=== PATIENT | female | born 1990 | race African-American/Black ===

== ENCOUNTER → 2016-09-01 | Outpatient (CLI) | payer MEDICAID ==
[~2016-09-01] MED LIST: IBUP800T23 PO
== END ==
LOC: HPND 08:11
PROVIDERS: ATTEND Obstetrics & Gynecology
DX: Z36 Encounter for antenatal screening of mother (principal)
CPT/HCPCS: 76813; 76817

== ENCOUNTER 2016-09-11 18:50 | Emergency (ER) | payer MEDICAID ==
[2016-09-11 18:52] VITALS: BP 155/72; PULSE 84; RESP 24; TEMP 98.7; O2SAT 99
[2016-09-11 20:15] VITALS: PULSE 80
[2016-09-11 20:20] VITALS: PULSE 84
[2016-09-11 20:25] VITALS: PULSE 89
[2016-09-11 20:29] VITALS: BP 148/76; PULSE 98
[2016-09-11 20:30] VITALS: RESP 18
--- NOTE | 2016-09-11 20:48 | PD ---
HPI Chief Complaint vaginal bleeding Date Seen: September 11, 2016 Travel History International Travel<30 Days: No Contact w/Intl Traveler<30Days: No Known Affected Area: No History of Present Illness HPI This is a 26y/o at 15w6d who presents to the [facility] with dark red vaginal bleeding noted at 4pm. She denies leakage of fluid with reports of lower abdominal pain when urinating. Pt with similar bleeding at ~ 8 weeks of gestation. She was also placed on bedrest in end of July/early August due to spotting. Recent UTI and yeast infection in early July. [place] yesterday evening and this morning. care with Dr. Abraham, no records for review, care complicated by: 1. bleeding in early 2. bleeding episode today 3. h/o PIH, mildly elevated bps, f/u for bp check in the office Para: 1 : 3 History Past Medical History Narrative Medical h/o Asthma, no meds Obstetric History Obstetric History 2013 Past Surgical History Surgical History: No Previous Surgery Social History Alcohol Use: No Tobacco Use: No Substance Abuse: No Allergies-Medications (Allergen,Severity, Reaction): Coded Allergies: No Known Allergies (Unverified , 09/11/16) Home Meds Active Scripts Ibuprofen 800 Mg Gap711 Mg PO TID PRN (PAIN) #30 TAB Prov:Charli Hart MD 04/27/14 Review of Systems Except as stated in HPI: all other systems reviewed are Neg Physical Exam Vital Signs Date Time Temp Pulse Resp B/P Pulse Ox O2 Delivery O2 Flow Rate FiO2 09/11/16 18:52 98.7 84 24 155/72 99 Room Air Narrative GENERAL: Well-nourished, well-developed patient. SKIN: Warm and dry. HEAD: Normocephalic and atraumatic. EYES: No scleral icterus. No injection or drainage. ENT: No nasal drainage noted. Mucous membranes pink. Airway patent. NECK: Supple, trachea midline. No JVD. CARDIOVASCULAR: Regular rate and rhythm without murmurs, gallops, or rubs. RESPIRATORY: Breath sounds equal bilaterally. No accessory muscle use. BREASTS: Bilateral exam showed no masses , no retractions, no nipple discharge. ABDOMEN/GI: Abdomen soft, non-tender, bowel sounds present, no rebound, no guarding Gravid to 17 weeks size GENITOURINARY: External Genitalia: intact and normal in appearance Cervix: c/l/p Sterile speculum exam: + blood seen, visually closed, + minimal blood clots FHT's: seen on bedside u/s, active fetus EXTREMITIES: No cyanosis or edema. BACK: Nontender without obvious deformity. No CVA tenderness. NEUROLOGICAL: Awake and alert. Motor and sensory grossly within normal limits. Five out of 5 muscle strength in all muscle groups. Normal speech. Data Data Vital Signs Reviewed: Yes Orders Urinalysis - C+S If Indicated (09/11/16 19:13) Ed Urine Pregnancytest Poc (09/11/16 19:13) Vital Signs (Adult) .ON ADMISSION (09/11/16 20:39) ^ Labor Status (09/11/16 20:39) [facility] Medical Record Reviewed: No Interpretation(s) 26y/o at 15w6d who presents for evaluation of vaginal bleeding in . -active fetus on ultrasound, +FH -minimal bleeding on exam -mildly elevated blood pressures -RH + per EMR Plan -strict pelvic rest -f/u with ob provider this week due to bleeding and elevated blood presssures Diagnosis Diagnosis: Primary Impression: Antepartum bleeding, second trimester Disposition: 01 DISCHARGE HOME Patient Instructions: General Instructions Comfort Aguilar MD September 11, 2016 20:48
[2016-09-11 20:50] LABS: BLOOD, URINE LARGE (NEG); COMMENT (UR) CULT NOT INDICATED; CULTURE IF INDICATED CULT NOT INDICATED; GLUCOSE,URINE NEG (NEG); KETONE, URINE NEG (NEG); NITRITE,URINE NEG (NEG); PH, URINE 5.5 (5.0-8.5); SQUAMOUS EPITHELIAL CELL URINE 7 /hpf (0-5); URINE COLOR YELLOW (YELLW/STRAW)
== END 2016-09-11 21:15 | disposition home or self-care (01) ==
LOC: HOBED 18:50
DX: O46.92 Antepartum hemorrhage, unspecified, second trimester (principal); Z3A.15 15 weeks gestation of pregnancy
CPT/HCPCS: 81001; 99284

== ENCOUNTER → 2016-09-30 | Outpatient (CLI) | payer MEDICAID | LOC: HPND 09:46 | PROVIDERS: ATTEND Obstetrics & Gynecology | DX: O26.842 Uterine size-date discrepancy, second trimester (principal); O35.1XX0 Maternal care for (suspected) chromosomal abnormality in fetus, not applicable or unspecified; Z36 Encounter for antenatal screening of mother; Z3A.18 18 weeks gestation of pregnancy | CPT/HCPCS: 76805; 76817 ==

== ENCOUNTER → 2016-10-27 | Outpatient (CLI) | payer MEDICAID | LOC: HPND 08:04 | PROVIDERS: ATTEND Obstetrics & Gynecology | DX: O35.1XX0 Maternal care for (suspected) chromosomal abnormality in fetus, not applicable or unspecified (principal); O43.192 Other malformation of placenta, second trimester; O36.8920 Maternal care for other specified fetal problems, second trimester, not applicable or unspecified; Z3A.00 Weeks of gestation of pregnancy not specified | CPT/HCPCS: 76816 ==

== ENCOUNTER 2016-12-29 11:36 | Emergency (ER) | payer MEDICAID ==
--- NOTE | 2016-12-29 12:30 | PD ---
HPI Chief Complaint Patient fell in the bathtub Date Seen: Dec 29, 2016 Time Seen: 12:15 Travel History International Travel<30 Days: No Contact w/Intl Traveler<30Days: No Known Affected Area: No History of Present Illness HPI Patient is a 26-year-old black female at [address] Abraham for care. She was in the bathtub today with her small child and fell because the kid got in her way and she slipped and fell backwards and hit on her bottom and back, no injury to the abdomen. Her back is sore and painful now , no bleeding noted no leakage of fluid. Baby is active since the fall. Weeks Gestation: 31 Para: 1 : 4 Miscarriage: 2 History Obstetric History Obstetric History One vaginal delivery Social History Alcohol Use: No Tobacco Use: No Substance Abuse: No Allergies-Medications (Allergen,Severity, Reaction): Coded Allergies: No Known Allergies (Unverified , 09/11/16) Home Meds Active Scripts Ibuprofen (Ibuprofen) 800 Mg Tab, 800 MG PO TID Y for PAIN, #30 TAB Prov:Charli Hart MD 04/27/14 Review of Systems Gastrointestinal: Abdominal Pain Physical Exam Narrative GENERAL: Well-nourished, well-developed patient. SKIN: Warm and dry. HEAD: Normocephalic and atraumatic. EYES: No scleral icterus. No injection or drainage. ENT: No nasal drainage noted. Mucous membranes pink. Airway patent. NECK: Supple, trachea midline. No JVD. CARDIOVASCULAR: Regular rate and rhythm without murmurs, gallops, or rubs. RESPIRATORY: Breath sounds equal bilaterally. No accessory muscle use. BREASTS: Bilateral exam showed no masses , no retractions, no nipple discharge. ABDOMEN/GI: Abdomen soft, non-tender, bowel sounds present, no rebound, no guarding Gravid to [31-] weeks size Fundal Height: [31-] GENITOURINARY: Membranes: [intact ] Uterine Contractions: [-none] FHT's: Category: [1-] Baseline: [133-] Reactive: [-yes] Variability: [mod-] Decels: [none-] EXTREMITIES: No cyanosis or edema. BACK: Nontender without obvious deformity. No CVA tenderness. NEUROLOGICAL: Awake and alert. Motor and sensory grossly within normal limits. Five out of 5 muscle strength in all muscle groups. Normal speech. MDM Interpretation(s) Patient 26-year-old black female at 31 weeks who fell in the tub today and fell against her back in the bottom no abdominal trauma. Heart rate is reactive and no contractions baby is moving well. She has no bleeding or leakage of fluid. Plan Plan to observe the patient for 2 hours after trauma and discharge home and follows well. Diagnosis Diagnosis: Primary Impression: Fall Additional Impression: 31 weeks gestation of Disposition: DISCHARGE HOME Condition: Stable Bora Stone II, MD Dec 29, 2016 12:30
== END 2016-12-29 14:15 | disposition home or self-care (01) ==
LOC: HOBED 11:36
DX: M54.9 Dorsalgia, unspecified (principal); Z3A.31 31 weeks gestation of pregnancy; Z34.93 Encounter for supervision of normal pregnancy, unspecified, third trimester
CPT/HCPCS: 99283

== ENCOUNTER 2017-02-25 08:58 | Inpatient (IN) | payer MEDICAID ==
[2017-02-25] VITALS (54 sets, daily range): BP systolic 102–147; BP diastolic 46–98; PULSE 85–121; RESP 16–20; TEMP 98.1–99.7
[~2017-02-25] VITALS: Ht 170.2 cm; Wt 106.0 kg
[2017-02-25] MEDS ORDERED: PREN1TAB63 (09:30)
[2017-02-25 09:36] LABS: AUTOMATED NEUTROPHIL # 10.6 TH/MM3 (1.8-7.7); BASOPHIL % 0.3 % (0.0-2.0); EOSINOPHIL # 0.1 TH/MM3 (0-0.4); EOSINOPHIL % 0.5 % (0.0-4.0); HEMATOCRIT 38.7 % (35.0-46.0); HEMO FLAGS DIFF FINAL; LYMPH % 16.1 % (9.0-44.0); LYMPHOCYTE # 2.2 TH/MM3 (1.0-4.8); MEAN CELL VOLUME 86.3 FL (80.0-100.0); MEAN CORPUSCULAR HEMOGLOBIN 29.5 PG (27.0-34.0); MEAN CORPUSCULAR HGB CONC 34.2 % (32.0-36.0); MONO % 5.9 % (0.0-8.0); NEUT % 77.2 % (16.0-70.0); PLATELET COUNT 303 TH/MM3 (150-450); RED BLOOD COUNT 4.49 MIL/MM3 (4.00-5.30); RED CELL DISTRIBUTION WIDTH 14.5 % (11.6-17.2); WHITE BLOOD COUNT 13.7 TH/MM3 (4.0-11.0)
[2017-02-25 09:38] LABS: BACTERIA, URINE RARE /hpf; BLOOD, URINE NEG (NEG); COMMENT (UR) CULT NOT INDICATED; CULTURE IF INDICATED CULT NOT INDICATED; GLUCOSE,URINE NEG (NEG); KETONE, URINE NEG (NEG); MUCUS URINE FEW /lpf (OCC); NITRITE,URINE NEG (NEG); SQUAMOUS EPITHELIAL CELL URINE 3 /hpf (0-5); URINE COLOR YELLOW (YELLW/STRAW)
[2017-02-25] MEDS ORDERED: ONDANSETRON HCL 4 MG/2 ML VIAL IV PUSH PRN (10:00)
[2017-02-25] MEDS ORDERED: LIDOCAINE HCL 1% 50 ML VIAL INFIL PRN (10:00)
[2017-02-25] MEDS ORDERED: LACTATED RINGER'S 1000 ML BOLUS IV PRN (10:00)
[2017-02-25] MEDS ORDERED: NS 500 ML BOLUS IV PRN (10:00)
[2017-02-25] MEDS ORDERED: MINERAL OIL 10 ML VIAL TOPICAL PRN (10:00)
[2017-02-25] MEDS ORDERED: PENICILLIN G POT 5,000,000 UNITS/NS 100 ML (Mini-Bag Plus) IV ONE ×2 (10:00)
[2017-02-25] MEDS ORDERED: OXYTOCIN 30 UNITS/NS 500ML PREMIX IV SCH ×2 (10:00→20:15)
[2017-02-25] MEDS: PENICILLIN G POT 2,500,000 UNITS/NS 100 ML IV SCH ×6 (10:00→18:00)
[2017-02-25] MEDS ORDERED: OXYTOCIN 30 UNITS 500ML PREMIX IV ONE (10:00)
[2017-02-25] MEDS ORDERED: CITRIC ACID-SODIUM CITRATE LIQ 30 ML UDC PO SCH (10:00)
[2017-02-25] MEDS ORDERED: NS 1000 ML IV PRN (10:00)
[2017-02-25] MEDS ORDERED: LIDOCAINE HCL 1% 50 ML VIAL I-DERMAL PRN (10:00)
[2017-02-25] MEDS: LACTATED RINGER'S 1000 ML IV SCH ×2 (10:16→18:00)
[2017-02-25 10:30] LABS: INDIRECT BILIRUBIN 0.2 MG/DL (0.0-0.8); TOTAL BILIRUBIN ADULT 0.3 MG/DL (0.2-1.0)
[2017-02-25] MEDS: ACETAMINOPHEN 325 MG TAB PO PRN (11:37)
[2017-02-25] MEDS ORDERED: fentaNYL 2MCG-BUPIV 0.125% INJ 100 ML ONE (14:24)
[2017-02-25] MEDS ORDERED: ePHEDrine/NS 25 MG/5 ML SYR ONE (14:24)
[2017-02-25] MEDS ORDERED: DO NOT ADMINISTER ANTICOAGULANTS PRN (15:30)
[2017-02-25] MEDS ORDERED: ePHEDrine/NS 25 MG/5 ML SYR IV PUSH PRN (15:30)
[2017-02-25] MEDS ORDERED: fentaNYL 2MCG-BUPIV 0.125% 100 ML EPIDURAL SCH (15:30)
[2017-02-25] MEDS ORDERED: NO SYSTEM NARCOTICS PRN (15:30)
[2017-02-25] MEDS ORDERED: MEASLES, MUMPS, RUBELLA VACCINE 0.5 ML VIAL SQ ONE (16:00)
[2017-02-25] MEDS ORDERED: DIPHTH/TETANUS/ACEL PERTUSSIS (BOOSTER) 0.5 ML VIAL/PFS IM ONE (16:00)
[2017-02-25] MEDS ORDERED: ALUMINUM/MAGNESIUM/SIMETH 30 ML CUP PO PRN (22:45)
[2017-02-25] MEDS ORDERED: ZOLPIDEM TARTRATE 5 MG TAB PO PRN (22:45)
[2017-02-25] MEDS ORDERED: OXYTOCIN 30 UNITS-500ML PREMIX 500 ML IV ONE (22:45)
[2017-02-25] MEDS ORDERED: OXYTOCIN 30 UNITS-500ML PREMIX 500 ML IV SCH (22:45)
[2017-02-25] MEDS ORDERED: OXYTOCIN 10 UNIT/ML AMP XX PRN (22:45)
[2017-02-25] MEDS ORDERED: SODIUM CHLORIDE 0.9% FLUSH 10 ML FLUSH IV FLUSH PRN (22:45)
[2017-02-25] MEDS ORDERED: WITCH HAZEL 50%/GLYCERIN 12.5% 40 PAD JAR TOPICAL PRN (22:45)
[2017-02-25] MEDS ORDERED: ONDANSETRON ODT 4 MG TAB PO PRN (22:45)
[2017-02-25] MEDS ORDERED: BENZOCAINE 20% TOPICAL SPRAY 60 ML CAN TOPICAL PRN (22:45)
[2017-02-25] MEDS ORDERED: ACETAMINOPHEN 325 MG TAB PO PRN (22:45)
--- NOTE | 2017-02-25 22:45 | PD.OB.DELI ---
Weeks gestation: 39 Gest age assessed date: Feb 25, 2017 Gest age assessed time: 09:00 Pt started active labor?: No Medical induction of labor?: Yes Medical induction start date: Feb 25, 2017 Medical induction start time: 09:00 Artificial rupture of membrane: Yes Artificial ROM date: Feb 25, 2017 Artifical ROM time: 12:15 Anesthesia: Epidural Episiotomy: None Vaginal Delivery: Normal Presentation: Occiput anterior Nuchal Cord: None Infant: Male, Single Delivery date: Feb 25, 2017 Delivery time: 22:23 One Minute : 8 Five Minute : 9 Weight: 7-12 Placenta: Spontaneous delivery, Intact, 3 vessel cord Laceration: No lacerations Estimated blood loss: 300 ml Jerry Abraham MD Feb 25, 2017 22:45
[2017-02-25] MEDS: oxyCODONE/ACETAMINOPHEN 5 MG/325 MG TAB PO PRN (23:12)
[2017-02-26 00:40] VITALS: BP 116/68; PULSE 85; RESP 20; TEMP 97.9; TEMP 98; O2SAT 97
[2017-02-26] MEDS: ACETAMINOPHEN 325 MG TAB PO PRN (03:04)
[2017-02-26] MEDS: IBUPROFEN 600 MG TAB PO PRN ×3 (03:10→18:12)
[2017-02-26 07:50] VITALS: BP 131/72; PULSE 79; RESP 16; TEMP 98.2
[2017-02-26] MEDS ORDERED: SODIUM CHLORIDE 0.9% FLUSH 10 ML FLUSH IV FLUSH SCH (09:00)
--- NOTE | 2017-02-26 09:07 | HHI.OB ---
Subjective Post Day: 1 Remarks pain controlled, mod lochia, +void/flatus, mattie po Objective Vitals/I&O Vital Signs Date Time Temp Pulse Resp B/P (MAP) Pulse Ox O2 Delivery O2 Flow Rate FiO2 02/26/17 07:50 98.2 79 16 131/72 (91) 02/26/17 04:00 16 02/26/17 04:00 16 02/26/17 00:40 98.0 02/26/17 00:40 97.9 02/26/17 00:40 85 20 116/68 (84) 97 02/25/17 23:40 89 02/25/17 23:40 124/76 (92) 02/25/17 23:39 18 02/25/17 23:17 93 132/74 (93) 02/25/17 23:17 18 02/25/17 23:02 106 18 128/86 (100) 02/25/17 22:46 18 02/25/17 22:46 111 117/66 (83) 02/25/17 22:40 115 127/72 (90) 02/25/17 22:39 18 02/25/17 21:56 112 145/81 (102) 02/25/17 21:56 18 02/25/17 21:20 103 16 133/72 (92) 02/25/17 21:02 98.6 18 02/25/17 21:01 92 109/56 (73) 02/25/17 20:47 95 18 114/59 (77) 02/25/17 20:32 93 18 115/60 (78) 02/25/17 20:16 100 102/46 (64) 02/25/17 20:15 18 02/25/17 19:56 96 128/75 (92) 02/25/17 19:55 18 02/25/17 19:30 18 02/25/17 19:29 121 125/75 (92) 02/25/17 19:00 98.1 18 02/25/17 18:59 101 128/62 (84) 02/25/17 18:30 18 02/25/17 18:15 107 122/63 (82) 02/25/17 18:01 115 130/75 (93) 02/25/17 17:46 86 117/78 (91) 02/25/17 17:45 99.0 02/25/17 17:37 20 02/25/17 17:30 99 114/61 (78) 02/25/17 17:00 111 127/64 (85) 02/25/17 16:46 105 118/51 (73) 02/25/17 16:30 91 129/76 (93) 02/25/17 16:15 86 120/62 (81) 02/25/17 16:00 98 111/60 (77) 02/25/17 15:51 18 02/25/17 15:51 99.1 02/25/17 15:45 99 105/56 (72) 02/25/17 15:25 105 118/55 (76) 02/25/17 15:20 93 131/65 (87) 02/25/17 15:15 104 122/73 (89) 02/25/17 15:15 101 02/25/17 14:55 92 02/25/17 14:55 88 140/85 (103) 02/25/17 14:50 100 142/83 (102) 02/25/17 14:50 94 02/25/17 14:46 96 147/85 (105) 02/25/17 14:45 101 02/25/17 14:13 20 02/25/17 14:00 85 129/78 (95) 02/25/17 13:30 102 129/78 (95) 02/25/17 13:01 85 128/75 (92) 02/25/17 12:36 99.5 20 02/25/17 12:35 85 136/71 (92) 02/25/17 12:08 20 02/25/17 12:00 88 137/89 (105) 02/25/17 11:00 108 20 116/98 (104) 02/25/17 10:53 91 135/83 (100) 02/25/17 09:30 99.7 20 02/25/17 09:18 98 133/76 (95) Objective Remarks GENERAL: Well-nourished, well-developed patient. CARDIOVASCULAR: Regular rate and rhythm without murmurs, gallops, or rubs. RESPIRATORY: Breath sounds equal bilaterally. No accessory muscle use. ABDOMEN/GI: Abdomen soft, non-tender. Fundus: Firm, non-tender at umbilicus. GENITOURINARY: Light to moderate bleeding. EXTREMITIES: No cyanosis or edema, non-tender, without signs of DVT. Medications and IVs Current Medications Medications (Trade) Dose Ordered Sig/Felicia Route Start Time Stop Time Status Last Admin Lactated Ringer's 1,000 ml @ 125 mls/hr Q8H IV 02/25/17 10:00 02/25/17 18:00 Lactated Ringer's 1,000 ml @ 3,000 mls/hr BOLUS PRN IV 02/25/17 10:00 Sodium Chloride 500 ml @ 1,000 mls/hr BOLUS PRN IV 02/25/17 10:00 Sodium Chloride 1,000 ml @ 100 mls/hr Q10H PRN IV 02/25/17 10:00 (Bicitra Liq) 30 ml CARPORT ERECTOR PO 02/25/17 10:00 02/28/17 09:59 (Zofran Inj) 4 mg Q6H PRN IV PUSH 02/25/17 10:00 02/25/17 19:30 (fentaNYL INJ) 50 mcg Q1H PRN IV PUSH 02/25/17 10:00 (fentaNYL INJ) 100 mcg Q1H PRN IV PUSH 02/25/17 10:00 02/25/17 13:05 Penicillin G Potassium 1104102 units/Sodium Chloride 100 ml @ 200 mls/hr Q4H IV 02/25/17 10:00 02/25/17 18:00 (Muri-Lube Oil) 10 ml UNSCH PRN TOPICAL 02/25/17 10:00 (Tylenol) 650 mg Q6H PRN PO 02/25/17 11:30 02/26/17 03:04 Miscellaneous Information No systemic narcotics to be given except... UNSCH PRN .XX 02/25/17 15:30 02/26/17 15:29 Miscellaneous Information DO NOT ADMINISTER ANY ANTICOAGUL... UNSCH PRN .XX 02/25/17 15:30 02/26/17 15:29 Fentanyl/ Bupivacaine HCl 100 ml @ 0 mls/hr TITRATE EPIDURAL 02/25/17 15:30 (ePHEDrine/NS 25 MG/5 ML SYR) 10 mg UNSCH PRN IV PUSH 02/25/17 15:30 02/26/17 15:29 Oxytocin 500 ml @ 2 mls/hr TITRATE IV 02/25/17 20:15 (Pitocin Inj) 20 units UNSCH X1 PRN XX 02/25/17 22:45 02/26/17 22:44 (NS Flush) 2 ml BID IV FLUSH 02/26/17 09:00 (NS Flush) 2 ml UNSCH PRN IV FLUSH 02/25/17 22:45 (Tylenol) 650 mg Q4H PRN PO 02/25/17 22:45 (Motrin) 600 mg Q6H PRN PO 02/25/17 22:45 02/26/17 03:10 (Percocet 5-325 Mg) 1 tab Q4H PRN PO 02/25/17 22:45 (Percocet 5-325 Mg) 2 tab Q4H PRN PO 02/25/17 22:45 02/25/17 23:12 (Americaine 20% Top Spr) 1 spray Q4H PRN TOPICAL 02/25/17 22:45 (Tucks Pads) 1 applic QID PRN TOPICAL 02/25/17 22:45 (Susie-Colace) 2 tab Q12H PRN PO 02/25/17 22:45 (Ambien) 5 mg HS PRN PO 02/25/17 22:45 (Mag-Al Plus Susp Liq) 15 ml Q8H PRN PO 02/25/17 22:45 (Zofran Odt) 4 mg Q6H PRN PO 02/25/17 22:45 Assessment/Plan Problem List: (1) Spontaneous vaginal delivery ICD Codes: O80 - Encounter for full-term uncomplicated delivery Status: Acute Plan: routine pp care Jerry Abraham MD Feb 26, 2017 09:07
[2017-02-26] MEDS ORDERED: OXYC1TAB63 PO (09:09)
[2017-02-26] MEDS ORDERED: IBUP-232 PO (09:09)
--- NOTE | 2017-02-26 09:09 | HHI.DCPOC ---
Discharge Care Plan Diagnosis: (1) Spontaneous vaginal delivery Your Health Problems Are: Vaginal delivery Report Symptoms to Your Doctor -Temperature above 100.5 degrees -Redness, of incision or excessive or foul smelling drainage -Unusual pain or calf pain -Increased vaginal bleeding -Painful or difficulty urinating -Feelings of extreme sadness or anxiety after 2 weeks Goals to Promote Your Health * To prevent worsening of your condition and complications * To maintain your health at the optimal level Directions to Meet Your Goals Take your medications as prescribed Follow your dietary instruction Follow activity as directed Ensure plenty of rest for recovery Drink fluids for hydration Keep your appointments as scheduled Take your immunizations and boosters as scheduled If your symptoms worsen call your PCP, if no PCP go to Urgent Care Center or Emergency Room Smoking is Dangerous to Your Health. Avoid second hand smoke Call the 24-hour crisis hotline for domestic abuse at Jerry Abraham MD Feb 26, 2017 09:09
[2017-02-26] MEDS: DOCUSATE SODIUM 50 MG/SENNA 8.6 MG TAB PO PRN ×2 (09:32→22:16)
[2017-02-26] MEDS: oxyCODONE/ACETAMINOPHEN 5 MG/325 MG TAB PO PRN ×3 (09:33→22:16)
[2017-02-26 19:40] VITALS: BP 119/73; PULSE 87; RESP 16; TEMP 98.3
[2017-02-27] MEDS: IBUPROFEN 600 MG TAB PO PRN ×2 (06:10→12:45)
[2017-02-27] MEDS: oxyCODONE/ACETAMINOPHEN 5 MG/325 MG TAB PO PRN ×2 (06:10→12:45)
[2017-02-27 08:50] VITALS: BP 121/73; PULSE 68; RESP 18; TEMP 97.8
[2017-02-27] MEDS: DOCUSATE SODIUM 50 MG/SENNA 8.6 MG TAB PO PRN (14:41)
[2017-02-27 18:35] VITALS: BP 142/84; PULSE 76
== END 2017-02-27 19:10 | disposition home or self-care (01) | DRG 775 ==
LOC: H2EA 08:58 → H1EA 02-26 00:13
PROVIDERS: ADMIT Obstetrics & Gynecology; ATTEND Obstetrics & Gynecology
PROC: 10E0XZZ Delivery of Products of Conception, External Approach (ICD-10-PCS; principal; 2017-02-25)
PROC: 10907ZC Drainage of Amniotic Fluid, Therapeutic from Products of Conception, Via Natural or Artificial Opening (ICD-10-PCS; 2017-02-25)
PROC: 3E0P3VZ Introduction of Hormone into Female Reproductive, Percutaneous Approach (ICD-10-PCS; 2017-02-25)
PROC: 3E0R3BZ Introduction of Anesthetic Agent into Spinal Canal, Percutaneous Approach (ICD-10-PCS; 2017-02-25)
PROC: 00HU33Z Insertion of Infusion Device into Spinal Canal, Percutaneous Approach (ICD-10-PCS; 2017-02-25)
DX: O13.3 Gestational [pregnancy-induced] hypertension without significant proteinuria, third trimester (principal); O99.213 Obesity complicating pregnancy, third trimester; Z68.36 Body mass index [BMI] 36.0-36.9, adult; Z37.0 Single live birth; Z3A.39 39 weeks gestation of pregnancy
CPT/HCPCS: 59025; 80076; 80307; 81001; 85025; 90715; J2405; J2540; J2590; J3010; J7120